=== PATIENT | male | born 1945 | race Caucasian/White ===

== ENCOUNTER → 2017-09-16 | Outpatient (CLI) | payer MEDICARE, OTHER ==
[~2017-09-16] MED LIST: ADDERALL10 MG PO; ANTIVERT 25MG25 MG PO; ASPIRIN 32325 MG/TA1 PO; FERROUS SU325 MG/TAB PO; FLAGYL500 MG PO; FLEXERIL 1010 MG/TAB PO; FOLIC ACID 40400 MCG PO; LEVAQUIN 750MG750 MG PO; LUTEIN20 MG PO; NAPROSYN500 MG PO; NO HOME MEDICATIONS; NORCO 325 MG-51 TAB PO; NORCO 325 MG-7.1 TAB PO; RANITIDINE150 MG PO; ULTRAM 50MG TAB50 MG PO; VITAMIN C500 MG PO; VITAMIN E 400 U4001 PO; [UNRECOGNIZED DRUG - REMARK]
== END ==
LOC: COL.RAD 09-15 10:30
DX: Z13.6 Encounter for screening for cardiovascular disorders (principal); I70.90 Unspecified atherosclerosis; Z82.49 Family history of ischemic heart disease and other diseases of the circulatory system

== ENCOUNTER → 2018-12-18 | Outpatient (CLI) | payer MEDICARE, OTHER ==
[2018-12-18 14:58] LABS: BASO # 0.1 (0.0-0.2); BASO % 0.8 % (0.0-2.0); EOS # 0.1 (0.0-0.7); GRAN # 4.2 (1.4-6.5); HEMATOCRIT 44.8 % (42.0-52.0); HEMOGLOBIN 15.4 g/dl (13.5-18.0); LYMPH # 1.3 (1.2-3.4); LYMPH % 20.3 % (20.0-51.0); MEAN CELL VOLUME 88 fl (80.0-100.0); MEAN CORPUSCULAR HEMOGLOBIN 30 pg (27.0-31.0); MEAN CORPUSCULAR HGB CONC 34 g/dl (33.0-37.0); MEAN PLATELET VOLUME 10.1 fl (7.4-10.4); MONO # 0.9 (0.1-0.6); MONO % 13.6 % (1.7-9.3); PLATELET COUNT 234 K/mm3 (130-400); REDCELL DISTRIBUTION WIDTH-CV 12.7 % (11.5-14.5)
[2018-12-18 15:24] LABS: ALANINE AMINOTRANSFERASE 37 U/L (21-72); ALKALINE PHOSPHATASE 81 U/L (50-136); ANION GAP 6 mmol/L (7-16); AST,SGOT 27 U/L (15-37); BLOOD UREA NITROGEN 16 mg/dL (9-20); CALCIUM 9.4 mg/dL (8.4-10.2); CARBON DIOXIDE 30 mmol/L (22-30); CHLORIDE 102 mmol/L (98-107); CREATININE, serum 1.03 mg/dL (0.66-1.25); GLUCOSE 79 mg/dL (74-106); POTASSIUM 4.6 mmol/L (3.4-5.0); SODIUM 137 mmol/L (137-145); TOTAL PROTEIN 7.4 gm/dL (6.4-8.2)
[2018-12-18 15:38] LABS: TROPONIN-I < 0.012 ng/mL (0.000-0.035)
== END ==
LOC: COL.LAB 12:56 → COL.RAD 12:56
PROVIDERS: Internal Medicine
DX: R07.89 Other chest pain (principal)
CPT/HCPCS: Q9967

== ENCOUNTER 2019-08-21 22:42 | Emergency (ER) | payer MEDICARE, OTHER ==
[~2019-08-21] VITALS: Ht 180.3 cm; Wt 96.4 kg
[2019-08-21 22:56] VITALS: BP 140/78; TEMP 98
[2019-08-22 00:09] LABS: BASO % 0.3 % (0.0-2.0); EOS # 0.4 (0.0-0.7); EOS % 5.1 % (0-4.0); GRAN # 4.9 (1.4-6.5); GRAN % 56.9 % (42.2-75.2); HEMOGLOBIN 11.1 g/dl (13.5-18.0); LYMPH # 2.1 (1.2-3.4); LYMPH % 24.3 % (20.0-51.0); MEAN CELL VOLUME 91 fl (80.0-100.0); MEAN CORPUSCULAR HEMOGLOBIN 31 pg (27.0-31.0); MEAN CORPUSCULAR HGB CONC 34 g/dl (33.0-37.0); MONO # 1.1 (0.1-0.6); MONO % 12.5 % (1.7-9.3); PLATELET COUNT 208 K/mm3 (130-400); RED BLOOD COUNT 3.63 M/mm3 (4.20-5.60); REDCELL DISTRIBUTION WIDTH-CV 13.2 % (11.5-14.5)
[2019-08-22 00:18] LABS: ALBUMIN 3.3 gm/dL (3.5-5.0); CALCIUM 8.4 mg/dL (8.4-10.2); CREATININE, serum 0.95 (0.66-1.25); POTASSIUM 4.6 mmol/L (3.4-5.0)
[2019-08-22 00:19] LABS: HEMATOCRIT 33.1 % (42.0-52.0)
[2019-08-22 01:45] VITALS: PULSE 72
== END 2019-08-22 01:45 | disposition home or self-care (01) ==
LOC: COL.ER 22:42
PROVIDERS: Emergency Medicine
DX: M79.661 Pain in right lower leg (principal); K21.9 Gastro-esophageal reflux disease without esophagitis; R22.41 Localized swelling, mass and lump, right lower limb; Z79.82 Long term (current) use of aspirin
CPT/HCPCS: J1650

== ENCOUNTER → 2019-08-22 | Outpatient (CLI) | payer MEDICARE, OTHER | LOC: COL.RAD 10:16 | DX: M79.89 Other specified soft tissue disorders (principal); Z96.651 Presence of right artificial knee joint ==

== ENCOUNTER → 2019-09-07 | Outpatient (CLI) | payer MEDICARE, OTHER | LOC: COL.VAS 14:36 | DX: M79.89 Other specified soft tissue disorders (principal); Z96.651 Presence of right artificial knee joint ==

== ENCOUNTER → 2020-04-18 | Outpatient (CLI) | payer MEDICARE, OTHER | LOC: ZCOL.LAB 15:37 | DX: Z20.828 Contact with and (suspected) exposure to other viral communicable diseases (principal) ==

== ENCOUNTER → 2020-06-08 | Outpatient (CLI) | payer MEDICARE, OTHER | LOC: COL.VAS 13:06 | DX: I35.1 Nonrheumatic aortic (valve) insufficiency (principal); R91.1 Solitary pulmonary nodule ==

== ENCOUNTER → 2020-06-20 | Outpatient (CLI) | payer MEDICARE, OTHER ==
[~2020-06-20] VITALS: Ht 180.3 cm; Wt 92.2 kg
[~2020-06-20] MED LIST changes: +FISH OIL 1000MG1 CAP PO; +LUTEIN20 M1 PO; -LUTEIN20 MG PO; +NATURAL MAGNES200 MG PO; +PROAIR HFA0.09 MG/AC IH; +SINGULAIR 110 MG/TAB PO
[2020-06-20 09:41] VITALS: BP 145/82; PULSE 67
[2020-06-20 10:10] VITALS: BP 140/80; PULSE 61
--- NOTE | 2020-06-20 10:10 | NUR ---
patient connected to monitoring, CT done. Dr Tran into see pt, stated talked with Dr Greenberg on phone concerning left lung nodule, area has decreased in size, will not to biopsy today. Dr discussed follow up for pt with Dr Greenberg and also followup with lymph node enlargement
--- NOTE | 2020-06-20 10:30 | NUR ---
pt amb. back to holding area, IV dc'd intact, pt dressed, reviewed followup with Dr Greenberg pt to [place] for ride
== END ==
LOC: COL.RAD
DX: R91.1 Solitary pulmonary nodule (principal)

== ENCOUNTER → 2021-10-25 | Outpatient (CLI) | payer MEDICARE, OTHER | LOC: COL.VAS 07:52 | DX: M79.662 Pain in left lower leg (principal) ==

== ENCOUNTER → 2021-11-13 | Outpatient (CLI) | payer MEDICARE, OTHER | LOC: COL.RAD 07:28 | DX: R10.9 Unspecified abdominal pain (principal) ==

== ENCOUNTER 2022-05-16 20:57 | Observation (INO) | payer MEDICARE, OTHER ==
[~2022-05-16] VITALS: Ht 177.8 cm; Wt 95.2 kg
[2022-05-16 21:56] LABS: BASO % 0.4 % (0.0-2.0); EOS % 0.2 % (0.0-4.0); GRAN # 3.6 K/mm3 (1.4-6.5); GRAN % 71.2 % (42.2-75.2); HEMATOCRIT 44.3 % (42.0-52.0); HEMOGLOBIN 15.3 g/dl (13.5-18.0); LYMPH # 0.6 K/mm3 (1.2-3.4); LYMPH % 11.6 % (20.0-51.0); MEAN CELL VOLUME 90 fl (80.0-100.0); MEAN CORPUSCULAR HEMOGLOBIN 31 pg (27-31); MEAN CORPUSCULAR HGB CONC 35 g/dl (33.0-37.0); MEAN PLATELET VOLUME 11.1 fl (7.4-10.4); MONO # 0.8 K/mm3 (0.1-0.6); MONO % 16.4 % (1.7-9.3); PLATELET COUNT 124 K/mm3 (130-400); RED BLOOD COUNT 4.95 M/mm3 (4.20-5.60); REDCELL DISTRIBUTION WIDTH-CV 13.2 % (11.5-14.5)
[2022-05-16 22:16] LABS: ALBUMIN 3.9 gm/dL (3.4-4.8); BILIRUBIN,TOTAL 0.7 mg/dL (0.2-1.2); CALCIUM 8.7 mg/dL (8.4-10.2); CREATININE, serum 1.22 mg/dL (0.72-1.25); POTASSIUM 4.2 mmol/L (3.5-4.5); TOTAL PROTEIN 6.6 gm/dL (6.2-8.1)
[2022-05-16 22:22] LABS: TROPONIN-I 0.018 ng/mL (0.00-0.033)
[2022-05-16] MEDS ORDERED: FLOVENT DI250 MCG/Ac IH (23:58)
[2022-05-17] MEDS ORDERED: PAXLOVID CO-PA1 EACH PO (00:05)
[2022-05-17 00:42] LABS: INR 1.2 (0.8-3.0); PROTHROMBIN TIME 13.6 SECONDS (9.7-12.8)
[2022-05-17 00:56] LABS: COLLECTION METHOD CLEAN CATCH
[2022-05-17 01:09] LABS: SQUAMOUS EPITHELIAL None Seen /hpf (0-10); URINE BACTERIA None Seen /hpf (NONE SEEN); URINE COLOR Yellow (YELLOW); URINE RBC 0-2 /hpf (0-2)
[2022-05-17 01:10] LABS: PH 6.5 (5.0-8.5); URINE APPEARANCE Clear (CLEAR/HAZY); URINE BLOOD Negative (NEGATIVE); URINE GLUCOSE Negative (NEGATIVE); URINE KETONE Negative (NEGATIVE); URINE NITRATE Negative (NEGATIVE); URINE PROTEIN(semi-quant) Negative (NEGATIVE); URINE UROBILINOGEN 0.2 E.U/dL (0.2-1.0)
[2022-05-17 01:12] LABS: C-REACTIVE PROTEIN 1.34 mg/dL (0.00-0.50); MAGNESIUM 1.7 mg/dL (1.6-2.6)
[2022-05-17] MEDS ORDERED: PRILOSEC 20MG20 MG PO (01:17)
[2022-05-17 01:18] LABS: TROPONIN-I 0.014 ng/mL (0.00-0.033)
[2022-05-17] MEDS ORDERED: TESSALON P100 MG/CAP PO (01:22)
[2022-05-17 01:38] VITALS: BP 151/77; PULSE 77; TEMP 98.1
[2022-05-17 04:16] VITALS: BP 123/80; PULSE 61; TEMP 98
--- NOTE | 2022-05-17 07:08 | NUR ---
REPORT GIVEN TO ERIN CELAYA. NO CONCERNS.
[2022-05-17 08:33] VITALS: BP 129/81; PULSE 91; TEMP 98
--- NOTE | 2022-05-17 10:12 | NUR ---
PT AWAKE , ORIENT X4, VSS. AMBULATORY TO THE BATHROOM DURING BEDSIDE REPORT. PT HAS ORDERED [employer] ALREADT.
[2022-05-17 12:07] VITALS: BP 128/71; PULSE 58; TEMP 97.8
[2022-05-17] MEDS ORDERED: Monodox PO (13:56)
== END 2022-05-17 14:00 | disposition home or self-care (01) ==
LOC: COL.ER 20:57 → MEDICAL 23:22
PROVIDERS: Emergency Medicine; Nurse Practitioner Family; ADMIT Internal Medicine
DX: U07.1 COVID-19 (principal); J96.01 Acute respiratory failure with hypoxia; J45.909 Unspecified asthma, uncomplicated; D72.829 Elevated white blood cell count, unspecified; I50.30 Unspecified diastolic (congestive) heart failure; Z87.891 Personal history of nicotine dependence
CPT/HCPCS: G0378; J1100; J1650; J7030

== ENCOUNTER 2022-06-09 11:10 | Emergency (ER) | payer MEDICARE, OTHER ==
[~2022-06-09] VITALS: Ht 177.8 cm; Wt 90.9 kg
[~2022-06-09 11:10] MED LIST changes: +FLOVENT DI250 MCG/Ac IH; +Monodox PO; +PAXLOVID CO-PA1 EACH PO; +PRILOSEC 20MG20 MG PO; +TESSALON P100 MG/CAP PO
[2022-06-09 11:27] VITALS: BP 127/82
[2022-06-09] MEDS ORDERED: DOXYCYCLINE 10100 MG PO (11:54)
[2022-06-09 12:15] VITALS: PULSE 88
== END 2022-06-09 12:15 | disposition home or self-care (01) ==
LOC: COL.ER 11:10
DX: L03.031 Cellulitis of right toe (principal); Z89.421 Acquired absence of other right toe(s)